=== PATIENT | female | born 1970 | race Asian ===

== ENCOUNTER 2020-12-07 06:25 | Day surgery (SDC) | payer OTHER ==
[2020-12-04 12:17] LABS: COVID AG,FIA SOURCE NASAL SWAB
[~2020-12-07] VITALS: Ht 175.3 cm; Wt 66.4 kg
[~2020-12-07 06:25] MED LIST: CALC650T32 PO; FLUT16H NASAL; FOLI-74 PO; METH2.5T6 PO; MOME13HF IH; NIFE10 PO; OMEP20CA4 PO; PRED2.5T PO; SIMV10TA97 PO; SODIUM CHLORIDE 0.9% 1,000 ML ONE
[2020-12-07] MEDS ORDERED: SODIUM CHLORIDE 0.9% 1,000 ML IV ONE (06:30)
[2020-12-07] MEDS ORDERED: MIDAZOLAM HCL 2 MG/2 ML VIAL ONE ×2 (07:47→08:49)
[2020-12-07] MEDS ORDERED: FentaNYL CITRATE PF 100 MCG/2 ML VIAL ONE (07:47)
[2020-12-07] MEDS ORDERED: MethylPREDNISolone SOD SUCC 125 MG/2 ML VIAL IVP ONE (08:45)
[2020-12-07] MEDS ORDERED: MethylPREDNISolone SOD SUCC 125 MG/2 ML VIAL ONE (09:04)
[2020-12-07] MEDS ORDERED: ALBUTEROL SULFATE 2.5 MG/0.5 ML NEB SOLUTION NEB ONE (16:25)
[2020-12-07] MEDS ORDERED: BENZOCAINE 20% 50 MCG/SPRAY 57 GM ONE (16:25)
[2020-12-07] MEDS ORDERED: LIDOCAINE 2% 30 ML JELLY ONE (16:25)
[2020-12-07] MEDS ORDERED: OXYGEN THERAPY IH SCH (20:00)
== END 2020-12-07 10:10 | disposition home or self-care (01) ==
LOC: SURGERY 06:25
PROVIDERS: ATTEND Internal Medicine Critical Care Medicine
DX: J38.4 Edema of larynx (principal); B37.0 Candidal stomatitis
CPT/HCPCS: 31623; 31624; 71045; 87015; 87070; 87101; 87206; 87220; 87426; 88108; 88184; 88185; 88312; C9803; J2250; J2930; J3010; J7030; J7613